=== PATIENT | male | born 1990 | race African-American/Black ===

== ENCOUNTER 2023-03-21 17:46 | Emergency (ER) | payer OTHER ==
[~2023-03-21] VITALS: Ht 175.3 cm; Wt 112.0 kg
[2023-03-21 19:49] VITALS: BP 123/68; TEMP 97.9; O2SAT 98
[2023-03-21] MEDS ORDERED: TETRACAINE 0.5% OPHTH SOLN 4ML OD ONE (21:45)
[2023-03-21] MEDS ORDERED: CIPROFLOXACIN 0.3% OPHTH SOLN 2.5ML OD ONE (22:05)
[2023-03-21] MEDS ORDERED: CIPR0.3S37 OD (22:08)
== END 2023-03-21 22:19 | disposition home or self-care (01) ==
LOC: M ED 17:46
DX: T15.11XA Foreign body in conjunctival sac, right eye, initial encounter (principal); Z79.2 Long term (current) use of antibiotics; Y99.1 Military activity

== ENCOUNTER 2023-04-10 09:00 | Day surgery (SDC) | payer OTHER ==
[~2023-04-10] VITALS: Ht 175.3 cm; Wt 113.3 kg
[~2023-04-10 09:00] MED LIST: CIPR0.3S37 OD
[2023-04-10] MEDS: NS 1,000 ML IV ONE (10:39)
[2023-04-10 10:53] LABS: BASO % 0.3 % (0.0-1.0); EOS # 0.1 10^3/uL (0.0-0.5); EOS % 0.6 % (0.0-3.0); HEMATOCRIT 40.8 % (42.0-52.0); HEMOGLOBIN 13.2 g/dl (13.5-17.5); LYMPH # 1.1 10^3/uL (1.5-5.0); LYMPH % 11.6 % (24.0-44.0); MEAN CORPUSCULAR HEMOGLOBIN 31.1 pg (27.0-33.0); MEAN CORPUSCULAR HGB CONC 32.4 g/dl (32.0-36.5); MEAN CORPUSCULAR VOLUME 96.2 fl (80.0-96.0); MONO # 0.6 10^3/uL (0.0-0.8); MONO % 6.9 % (2.0-8.0); NEUTROPHILS # 7.3 10^3/uL (1.5-8.5); NEUTROPHILS % 80.4 % (36.0-66.0); PLATELET COUNT, AUTOMATED 307 10^3/uL (150-450); RED BLOOD COUNT 4.24 10^6/uL (4.30-6.10); WHITE BLOOD COUNT 9.1 10^3/uL (4.0-10.0)
[2023-04-10 11:05] LABS: INR 1.07; PROTHROMBIN TIME 13.6 SECONDS (12.5-14.5)
[2023-04-10 11:06] LABS: PARTIAL THROMBOPLASTIN TIME 31.5 SECONDS (24.8-34.2)
[2023-04-10 11:21] LABS: LIPASE 23 U/L (12-53)
[2023-04-10 11:22] LABS: AMYLASE 43 U/L (30-118)
[2023-04-10 11:23] LABS: ALBUMIN 3.8 G/DL (3.2-5.2); ALKALINE PHOSPHATASE 97 U/L (46-116); ALT/SGPT 35 U/L (7.0-40); AST/SGOT 23 U/L (<34); BILIRUBIN,DIRECT 0.2 MG/DL (<0.4); BILIRUBIN,TOTAL 0.6 MG/DL (0.3-1.2); BLOOD UREA NITROGEN 12 MG/DL (9-23); CALCIUM LEVEL 8.5 MG/DL (8.5-10.1); CARBON DIOXIDE LEVEL 30 MMOL/L (20-31); CHLORIDE LEVEL 107 MMOL/L (98-107); CREATININE FOR GFR 0.89 MG/DL (0.70-1.30); GLOMERULAR FILTRATION RATE > 60.0 (>60); GLUCOSE, FASTING 96 MG/DL (60-100); POTASSIUM SERUM 4.1 MMOL/L (3.5-5.1); SODIUM LEVEL 141 MMOL/L (136-145); TOTAL PROTEIN 7.1 G/DL (5.7-8.2)
[2023-04-10] MEDS ORDERED: ISOVUE-370 76% 100ML VIAL As Ordered ONE (11:35)
[2023-04-10] MEDS: PIPERACILLIN/TAZOBACTAM SOD 3.375 GM in D5W MINI-BAG PLUS 50 ML IV ONE (13:19)
[2023-04-10] MEDS: LR 1,000 ML IV SCH (16:11)
[2023-04-10] MEDS ORDERED: HOME MED LIST COMPLETE! XX SCH (16:50)
[2023-04-10] MEDS ORDERED: ROCURONIUM BROMIDE 50MG/5ML VIAL As Ordered ONE (18:09)
[2023-04-10] MEDS ORDERED: SUGAMMADEX SODIUM 500 MG/5 ML VIAL (BRIDION) As Ordered ONE (18:09)
[2023-04-10] MEDS ORDERED: ONDANSETRON 4MG 2ML VIAL As Ordered ONE (18:09)
[2023-04-10] MEDS ORDERED: KETOROLAC 60MG 2ML VIAL As Ordered ONE (18:09)
[2023-04-10] MEDS ORDERED: fentaNYL 250 MCG/5 ML INJECTION As Ordered ONE (18:09)
[2023-04-10] MEDS ORDERED: LIDOCAINE 2% 100MG/5ML SDV (FOR ANES.) As Ordered ONE (18:09)
[2023-04-10] MEDS ORDERED: propofoL 200 MG/20 ML VIAL As Ordered ONE (18:09)
[2023-04-10] MEDS ORDERED: MIDAZOLAM INJ 2MG/2ML VIAL As Ordered ONE (18:09)
[2023-04-10] MEDS ORDERED: ACETAMINOPHEN 1000MG 100ML IV BAG As Ordered ONE (18:09)
[2023-04-10] MEDS: PIPERACILLIN/TAZOBACTAM SOD 3.375 GM in D5W MINI-BAG PLUS 50 ML IV SCH (19:00)
[2023-04-10] MEDS ORDERED: oxyCODONE 5MG TAB PO PRN (19:10)
[2023-04-10] MEDS ORDERED: MORPHINE 2 MG/ML 1ML VIAL IV PRN (19:10)
[2023-04-10] MEDS ORDERED: fentaNYL 100 MCG/2 ML INJECTION IV PRN (19:10)
[2023-04-10] MEDS ORDERED: ONDANSETRON 4MG 2ML VIAL IV PRN (19:10)
[2023-04-10] MEDS ORDERED: LIDOCAINE 1% SDV 30ML VIAL As Ordered ONE (19:33)
[2023-04-10] MEDS ORDERED: PHENYLephrine 500MCG 5ML (100MCG/ML) SYRINGE As Ordered ONE (20:09)
[2023-04-10] MEDS ORDERED: PERCOCET 5MG/325MG TAB PO PRN (20:55)
[2023-04-10 21:30] VITALS: BP 117/62; TEMP 97.7; O2SAT 100
[2023-04-10 22:00] VITALS: TEMP 96.1; O2SAT 100
[2023-04-10 22:30] VITALS: TEMP 97.2; O2SAT 98
[2023-04-10 23:30] VITALS: BP 105/60; TEMP 97.2; O2SAT 97
[2023-04-10] MEDS: KETOROLAC 30 MG/ML 1ML VIAL IV PRN (23:48)
[2023-04-11 01:34] VITALS: BP 115/62; TEMP 96.9; O2SAT 97
[2023-04-11 02:30] VITALS: BP 112/62; TEMP 97.2; O2SAT 99
[2023-04-11 03:30] VITALS: BP 105/62; TEMP 97.5; O2SAT 96
[2023-04-11 06:39] VITALS: BP 112/53; TEMP 96.9; O2SAT 96
[2023-04-11] MEDS ORDERED: PERCOCET PO (10:17)
== END 2023-04-11 11:25 | disposition home or self-care (01) ==
LOC: M ED 09:00 → M SDC 15:24 → ENRESERV 20:42 → M MSPAV 21:26 → M SDC 04-11 11:25
PROVIDERS: ATTEND Surgery
DX: K35.80 Unspecified acute appendicitis (principal)
CPT/HCPCS: 44970; 74177; 80048; 80076; 81001; 82150; 83605; 83690; 85025; 85610; 85730; 87635; 88304; 99284; J0131; J0665; J1100; J1885; J2250; J2371; J2405; J2543; J3010; Q9967

== ENCOUNTER 2023-04-25 11:51 | Emergency (ER) | payer OTHER ==
[~2023-04-25] VITALS: Ht 175.3 cm; Wt 113.4 kg
[~2023-04-25 11:51] MED LIST changes: +PERCOCET PO
[2023-04-25 12:48] LABS: BASO % 0.3 % (0.0-1.0); EOS % 0.3 % (0.0-3.0); HEMATOCRIT 41.9 % (42.0-52.0); HEMOGLOBIN 13.5 g/dl (13.5-17.5); LYMPH # 1.4 10^3/uL (1.5-5.0); LYMPH % 8.8 % (24.0-44.0); MEAN CORPUSCULAR HEMOGLOBIN 30.5 pg (27.0-33.0); MEAN CORPUSCULAR HGB CONC 32.2 g/dl (32.0-36.5); MEAN CORPUSCULAR VOLUME 94.6 fl (80.0-96.0); MONO # 1.3 10^3/uL (0.0-0.8); MONO % 8.2 % (2.0-8.0); NEUTROPHILS # 12.5 10^3/uL (1.5-8.5); NEUTROPHILS % 81.9 % (36.0-66.0); PLATELET COUNT, AUTOMATED 304 10^3/uL (150-450); RED BLOOD COUNT 4.43 10^6/uL (4.30-6.10); WHITE BLOOD COUNT 15.3 10^3/uL (4.0-10.0)
[2023-04-25 13:05] LABS: INR 1.2; PARTIAL THROMBOPLASTIN TIME 31.5 SECONDS (24.8-34.2); PROTHROMBIN TIME 14.9 SECONDS (12.5-14.5)
[2023-04-25 13:21] LABS: CK-MB VALUE MASS < 1.0 NG/ML (<3.6)
[2023-04-25 13:22] LABS: CPK CREATINE PHOSPHOKINASE 218 U/L (46-171); MB/CK RELATIVE INDEX 0.45 (< OR =4)
[2023-04-25 13:46] LABS: LIPASE 24 U/L (12-53)
[2023-04-25 13:48] LABS: ALBUMIN 3.9 G/DL (3.2-5.2); ALKALINE PHOSPHATASE 110 U/L (46-116); ALT/SGPT 39 U/L (7.0-40); AST/SGOT 15 U/L (<34); BILIRUBIN,DIRECT 0.3 MG/DL (<0.4); BILIRUBIN,TOTAL 0.8 MG/DL (0.3-1.2); BLOOD UREA NITROGEN 11 MG/DL (9-23); CALCIUM LEVEL 9.4 MG/DL (8.5-10.1); CARBON DIOXIDE LEVEL 29 MMOL/L (20-31); CHLORIDE LEVEL 104 MMOL/L (98-107); CREATININE FOR GFR 0.97 MG/DL (0.70-1.30); GLOMERULAR FILTRATION RATE > 60.0 (>60); GLUCOSE, FASTING 98 MG/DL (60-100); SODIUM LEVEL 139 MMOL/L (136-145); TOTAL PROTEIN 7.6 G/DL (5.7-8.2)
[2023-04-25 13:50] LABS: FREE T4 1.06 NG/DL (0.89-1.76); THYROID STIMULATING HORMONE 0.954 uIU/ML (0.55-4.78)
[2023-04-25 14:36] LABS: CK-MB VALUE MASS < 1.0 NG/ML (<3.6)
[2023-04-25 14:38] LABS: CPK CREATINE PHOSPHOKINASE 209 U/L (46-171); MB/CK RELATIVE INDEX 0.47 (< OR =4)
[2023-04-25] MEDS ORDERED: ISOVUE-370 76% 100ML VIAL As Ordered ONE (15:38)
[2023-04-25] MEDS: NS 1,000 ML IV ONE (16:26)
[2023-04-25] MEDS: KETOROLAC 30 MG/ML 1ML VIAL IV ONE (16:27)
[2023-04-25 17:06] VITALS: O2SAT 98
[2023-04-25 17:15] VITALS: BP 113/61
[2023-04-25] MEDS ORDERED: AZIT-12 PO (17:18)
[2023-04-25 17:31] VITALS: TEMP 98.8
== END 2023-04-25 17:33 | disposition home or self-care (01) ==
LOC: M ED 11:51
DX: J18.9 Pneumonia, unspecified organism (principal); R74.8 Abnormal levels of other serum enzymes; F10.10 Alcohol abuse, uncomplicated; Z88.8 Allergy status to other drugs, medicaments and biological substances; Z79.2 Long term (current) use of antibiotics
CPT/HCPCS: 71046; 71275; 80048; 80076; 82550; 82553; 83690; 84439; 84443; 84484; 85025; 85610; 85730; 87486; 87581; 87633; 87798; 93005; 96361; 96374; 99285; J1885; Q9967

== ENCOUNTER 2023-11-23 09:50 | Emergency (ER) | payer OTHER ==
[~2023-11-23] VITALS: Ht 175.3 cm; Wt 121.9 kg
[~2023-11-23 09:50] MED LIST changes: +AZIT-12 PO
[2023-11-23 10:01] VITALS: BP 143/72; TEMP 97; O2SAT 94
[2023-11-23 11:13] LABS: INFLUENZA A AMPLIFICATION NEGATIVE (NEGATIVE); INFLUENZA B AMPLIFICATION NEGATIVE (NEGATIVE)
[2023-11-23] MEDS ORDERED: PSEU120T19 PO (12:03)
[2023-11-23] MEDS ORDERED: FLON1SPR NARES (12:03)
== END 2023-11-23 12:15 | disposition home or self-care (01) ==
LOC: M ED 09:50
DX: U07.1 COVID-19 (principal); R09.81 Nasal congestion; D55.0 Anemia due to glucose-6-phosphate dehydrogenase [G6PD] deficiency; Z79.2 Long term (current) use of antibiotics; Z79.899 Other long term (current) drug therapy